=== PATIENT | female | born 1975 | race Caucasian/White ===

== ENCOUNTER 2016-12-30 18:16 | Emergency (ER) | payer OTHER ==
[2016-12-30 21:56] LABS: HEMOGLOBIN 14.8 gm/dl (12.3-15.3); RED BLOOD COUNT 5.22 M/UL (4.00-5.10); WHITE BLOOD COUNT 10.8 K/UL (4.5-11.0)
[2016-12-30 22:15] LABS: BUN/CREATININE RATIO 24 (0-10)
== END 2016-12-31 01:10 | disposition home or self-care (01) ==
LOC: ER1 18:16
PROVIDERS: Emergency Medicine
DX: R10.11 Right upper quadrant pain (principal); R10.12 Left upper quadrant pain; R11.2 Nausea with vomiting, unspecified; R19.7 Diarrhea, unspecified; R63.0 Anorexia; Z90.49 Acquired absence of other specified parts of digestive tract
CPT/HCPCS: 36415; 36600; 80053; 81001; 82009; 82800; 83690; 84703; 85025; 96361; 96374; 99284; J2405

== ENCOUNTER 2020-11-01 18:12 | Emergency (ER) | payer OTHER ==
[~2020-11-01 18:12] MED LIST: FLEXERIL 10 MG10 MG PO; IBUPROFEN800 MG PO
[2020-11-01 19:32] LABS: BUN/CREATININE RATIO 19 (0-10)
[2020-11-01 21:29] LABS: HEMOGLOBIN 14.4 gm/dl (12.3-15.3); RED BLOOD COUNT 5.1 M/UL (4.00-5.10); WHITE BLOOD COUNT 12.6 K/UL (4.5-11.0)
[2020-11-01] MEDS ORDERED: TRAMADOL HCL50 MG PO (22:01)
[2020-11-01] MEDS ORDERED: IBUPROFEN600 MG PO (22:01)
== END 2020-11-01 22:15 | disposition home or self-care (01) ==
LOC: ER1 18:12
PROVIDERS: Internal Medicine
DX: R10.9 Unspecified abdominal pain (principal); E87.6 Hypokalemia; F17.210 Nicotine dependence, cigarettes, uncomplicated; E11.43 Type 2 diabetes mellitus with diabetic autonomic (poly)neuropathy; K31.84 Gastroparesis; R31.9 Hematuria, unspecified
CPT/HCPCS: 80053; 81001; 84703; 85025; 85610; 85730; 96374; 96375; 99284; J1885; J2405; J7120

== ENCOUNTER 2021-05-04 11:52 | Inpatient (IN) | payer OTHER ==
[~2021-05-04] VITALS: Ht 172.7 cm; Wt 107.5 kg
[~2021-05-04 11:52] MED LIST changes: +IBUPROFEN600 MG PO; +TRAMADOL HCL50 MG PO
[2021-05-04 12:10] LABS: HEMOGLOBIN 15.3 gm/dl (12.3-15.3); RED BLOOD COUNT 5.32 M/UL (4.00-5.10); WHITE BLOOD COUNT 13.2 K/UL (4.5-11.0)
[2021-05-04 12:31] LABS: BUN/CREATININE RATIO 14 (0-10)
[2021-05-04] MEDS ORDERED: ATORVASTATIN CA40 MG PO (23:00)
[2021-05-04] MEDS ORDERED: EFFEXOR XR 75 M75 MG PO (23:01)
[2021-05-04] MEDS ORDERED: HYDROCHLOROTHIA25 MG PO (23:04)
[2021-05-04] MEDS ORDERED: METOPROLOL SUCC25 MG PO (23:05)
[2021-05-04] MEDS ORDERED: LOSARTAN POTAS100 MG PO (23:05)
[2021-05-04] MEDS ORDERED: VENLAFAXINE HC150 MG PO (23:07)
[2021-05-04] MEDS ORDERED: METFORMIN HCL1000 MG PO (23:08)
[2021-05-04] MEDS ORDERED: FENOFIBRATE160 MG PO (23:09)
[2021-05-04] MEDS ORDERED: LEVOCETIRIZINE D5 MG PO (23:10)
[2021-05-04] MEDS ORDERED: MONTELUKAST SOD10 MG PO (23:11)
[2021-05-04] MEDS ORDERED: GABAPENTIN600 MG PO (23:14)
[2021-05-04] MEDS ORDERED: INSULIN PUMP (23:27)
[2021-05-05 12:50] LABS: WHITE BLOOD COUNT 11.3 K/UL (4.5-11.0)
[2021-05-05 13:00] LABS: HEMOGLOBIN 12.9 gm/dl (12.3-15.3); RED BLOOD COUNT 4.57 M/UL (4.00-5.10)
[2021-05-05 13:16] LABS: BUN/CREATININE RATIO 13 (0-10)
--- NOTE | 2021-05-06 09:04 | NUR ---
patient uses insulin pump bs this morning 225 and corrected with insulin med
[2021-05-07 03:40] LABS: BUN/CREATININE RATIO 9 (0-10)
--- NOTE | 2021-05-07 09:55 | NUR ---
patient on insulin pump, bs this morning 245 and gave herself correction
== END 2021-05-07 19:04 | disposition home or self-care (01) | DRG 921 ==
LOC: ER1 11:52 → M/S 17:53 → CDU 17:53 → M/S 22:25
PROVIDERS: Emergency Medicine; Internal Medicine; ADMIT Internal Medicine
DX: T85.518A Breakdown (mechanical) of other gastrointestinal prosthetic devices, implants and grafts, initial encounter (principal); E11.43 Type 2 diabetes mellitus with diabetic autonomic (poly)neuropathy; Z20.822 Contact with and (suspected) exposure to COVID-19; I10 Essential (primary) hypertension; E78.5 Hyperlipidemia, unspecified; E11.9 Type 2 diabetes mellitus without complications; Y83.9 Surgical procedure, unspecified as the cause of abnormal reaction of the patient, or of later complication, without mention of misadventure at the time of the procedure; Z96.41 Presence of insulin pump (external) (internal); E86.0 Dehydration; E66.01 Morbid (severe) obesity due to excess calories; G89.29 Other chronic pain; M51.36 Other intervertebral disc degeneration, lumbar region; E11.40 Type 2 diabetes mellitus with diabetic neuropathy, unspecified; F17.210 Nicotine dependence, cigarettes, uncomplicated; K31.84 Gastroparesis; K75.81 Nonalcoholic steatohepatitis (NASH); Z79.4 Long term (current) use of insulin; Z90.49 Acquired absence of other specified parts of digestive tract; Z98.1 Arthrodesis status; Z83.3 Family history of diabetes mellitus; Z82.49 Family history of ischemic heart disease and other diseases of the circulatory system; Z88.0 Allergy status to penicillin; Z88.2 Allergy status to sulfonamides; E27.8 Other specified disorders of adrenal gland
CPT/HCPCS: 36415; 80048; 80053; 81001; 82962; 83036; 83690; 84703; 85025; 96374; 96375; 99285; C9113; J0360; J1170; J1200; J2270; J2405; J2765; J7030; Q9967

== ENCOUNTER → 2021-05-16 | Outpatient (CLI) | payer OTHER ==
[~2021-05-16] MED LIST changes: +ATORVASTATIN CA40 MG PO; +EFFEXOR XR 75 M75 MG PO; +FENOFIBRATE160 MG PO; +GABAPENTIN600 MG PO; +HYDROCHLOROTHIA25 MG PO; +INSULIN PUMP; +LEVOCETIRIZINE D5 MG PO; +LOSARTAN POTAS100 MG PO; +METFORMIN HCL1000 MG PO; +METOPROLOL SUCC25 MG PO; +MONTELUKAST SOD10 MG PO; +VENLAFAXINE HC150 MG PO
== END ==
LOC: OPSV 12:00
DX: E86.0 Dehydration (principal); K31.84 Gastroparesis
CPT/HCPCS: 96360; 96361; 96375; J2405; J7030

== ENCOUNTER → 2021-05-19 | Outpatient (CLI) | payer OTHER ==
[~2021-05-19] VITALS: Ht 172.7 cm; Wt 108.0 kg
== END ==
LOC: OPSV 08:33
DX: E86.0 Dehydration (principal); K31.84 Gastroparesis
CPT/HCPCS: 96360; 96361; 96375; J2405; J7030

== ENCOUNTER → 2021-05-30 | Outpatient (CLI) | payer OTHER ==
[~2021-05-30] VITALS: Ht 172.7 cm; Wt 108.0 kg
== END ==
LOC: OPSV 08:48
DX: E86.0 Dehydration (principal); K31.84 Gastroparesis
CPT/HCPCS: 96360; 96361; 96375; J2405

== ENCOUNTER 2021-06-04 17:29 | Emergency (ER) | payer OTHER ==
[2021-06-04 19:42] LABS: HEMOGLOBIN 14.5 gm/dl (12.3-15.3); RED BLOOD COUNT 5.07 M/UL (4.00-5.10); WHITE BLOOD COUNT 17.1 K/UL (4.5-11.0)
[2021-06-04 20:11] LABS: BUN/CREATININE RATIO 20 (0-10)
[2021-06-04] MEDS ORDERED: BENTYL 20MG TAB20 MG PO (21:49)
== END 2021-06-04 22:09 | disposition home or self-care (01) ==
LOC: ER1 17:29
PROVIDERS: Physician Assistant
DX: R10.84 Generalized abdominal pain (principal); R11.2 Nausea with vomiting, unspecified; E11.43 Type 2 diabetes mellitus with diabetic autonomic (poly)neuropathy; K31.84 Gastroparesis
CPT/HCPCS: 80053; 81001; 82009; 82800; 83690; 83735; 84703; 85025; 87077; 87086; 87186; 96374; 96375; 99284; J2270; J2405; Q9967

== ENCOUNTER → 2021-06-09 | Outpatient (CLI) | payer OTHER ==
[~2021-06-09] VITALS: Ht 172.7 cm; Wt 108.0 kg
[~2021-06-09] MED LIST changes: +BENTYL 20MG TAB20 MG PO
== END ==
LOC: OPSV 09:00
DX: E86.0 Dehydration (principal); K31.84 Gastroparesis
CPT/HCPCS: 96360; 96375; J2405; J7030

== ENCOUNTER → 2021-06-13 | Outpatient (CLI) | payer OTHER ==
[~2021-06-13] VITALS: Ht 172.7 cm; Wt 108.0 kg
== END ==
LOC: OPSV 08:59
DX: E86.0 Dehydration (principal); K31.84 Gastroparesis
CPT/HCPCS: 96360; 96375; J2405

== ENCOUNTER → 2021-06-16 | Outpatient (CLI) | payer OTHER ==
[~2021-06-16] VITALS: Ht 172.7 cm; Wt 108.0 kg
[~2021-06-16] MED LIST changes: +COMPAZINE 10MG10 MG PO; +MACROBID 100 M100 MG PO; +ONDANSETRON ODT8 MG PO; +PROMETHAZINE12.5 M1 PO; +PROTONIX 40 MG40 M1 PO
== END ==
LOC: OPSV 09:00
DX: E86.0 Dehydration (principal); K31.84 Gastroparesis
CPT/HCPCS: 96360; 96361; 96375; J2405

== ENCOUNTER → 2021-06-17 | Day surgery (SDC) | payer OTHER ==
[~2021-06-17] VITALS: Ht 172.7 cm; Wt 104.3 kg
== END | disposition home or self-care (01) ==
LOC: OR 08:11
DX: E11.43 Type 2 diabetes mellitus with diabetic autonomic (poly)neuropathy (principal); I10 Essential (primary) hypertension; E78.00 Pure hypercholesterolemia, unspecified; K21.9 Gastro-esophageal reflux disease without esophagitis; F41.9 Anxiety disorder, unspecified; F32.A Depression, unspecified; G47.33 Obstructive sleep apnea (adult) (pediatric); Z87.891 Personal history of nicotine dependence; Z88.0 Allergy status to penicillin; Z88.6 Allergy status to analgesic agent; Z88.8 Allergy status to other drugs, medicaments and biological substances; Z79.4 Long term (current) use of insulin; Z20.822 Contact with and (suspected) exposure to COVID-19
CPT/HCPCS: 77001; 82962; 84703; C1769; C1788; J1642; J2001; J2250; J2704; J3010; J3370; J7030; J7040; J7050; J7120

== ENCOUNTER → 2021-06-20 | Outpatient (CLI) | payer OTHER ==
[~2021-06-20] VITALS: Ht 172.7 cm; Wt 108.0 kg
== END ==
LOC: OPSV 09:00
DX: E86.0 Dehydration (principal); K31.84 Gastroparesis; Z45.2 Encounter for adjustment and management of vascular access device
CPT/HCPCS: 96360; 96361; J1642; J2405

== ENCOUNTER → 2021-06-23 | Outpatient (CLI) | payer OTHER ==
[~2021-06-23] VITALS: Ht 172.7 cm; Wt 108.0 kg
== END ==
LOC: OPSV 09:00
DX: E86.0 Dehydration (principal); K31.84 Gastroparesis
CPT/HCPCS: 96360; 96375; J1642; J2405; J7030

== ENCOUNTER → 2021-06-27 | Outpatient (CLI) | payer OTHER ==
[~2021-06-27] VITALS: Ht 172.7 cm; Wt 108.0 kg
== END ==
LOC: OPSV 08:21
DX: E86.0 Dehydration (principal); K31.84 Gastroparesis
CPT/HCPCS: 96360; 96375; J1642; J2405; J7030

== ENCOUNTER → 2021-06-30 | Outpatient (CLI) | payer OTHER ==
[~2021-06-30] VITALS: Ht 172.7 cm; Wt 108.0 kg
== END ==
LOC: OPSV 08:49
DX: E86.0 Dehydration (principal); K31.84 Gastroparesis
CPT/HCPCS: 96360; 96361; 96375; J1642; J2405

== ENCOUNTER 2021-07-04 18:06 | Emergency (ER) | payer OTHER ==
[2021-07-04 19:48] LABS: HEMOGLOBIN 14.5 gm/dl (12.3-15.3); RED BLOOD COUNT 5.19 M/UL (4.00-5.10); WHITE BLOOD COUNT 14.9 K/UL (4.5-11.0)
[2021-07-04 20:17] LABS: BUN/CREATININE RATIO 15 (0-10)
[2021-07-04] MEDS ORDERED: BENTYL 20MG TAB20 MG PO (21:49)
[2021-07-04] MEDS ORDERED: ZOFRAN ODT 4 MG4 MG PO (21:49)
[2021-07-04] MEDS ORDERED: OMNICEF 300 MG300 MG PO (21:52)
== END 2021-07-04 22:20 | disposition home or self-care (01) ==
LOC: ER1 18:06
PROVIDERS: Physician Assistant
DX: N39.0 Urinary tract infection, site not specified (principal); E11.9 Type 2 diabetes mellitus without complications; I10 Essential (primary) hypertension; Z79.4 Long term (current) use of insulin; Z88.0 Allergy status to penicillin; Z88.2 Allergy status to sulfonamides; Z90.49 Acquired absence of other specified parts of digestive tract; R19.7 Diarrhea, unspecified; R11.2 Nausea with vomiting, unspecified; Z20.822 Contact with and (suspected) exposure to COVID-19
CPT/HCPCS: 80053; 81001; 83605; 83690; 83735; 85025; 86140; 87086; 96374; 96375; 99284; J1642; J2405; J7030; Q9967; U0002; U0003

== ENCOUNTER → 2021-07-07 | Outpatient (CLI) | payer OTHER ==
[~2021-07-07] VITALS: Ht 172.7 cm; Wt 108.0 kg
[~2021-07-07] MED LIST changes: +OMNICEF 300 MG300 MG PO; +ZOFRAN ODT 4 MG4 MG PO
== END ==
LOC: OPSV 09:00
DX: E86.0 Dehydration (principal); K31.84 Gastroparesis
CPT/HCPCS: 96365; 96375; J1642; J2405; J7030

== ENCOUNTER → 2021-07-09 | Outpatient (CLI) | payer OTHER ==
[~2021-07-09] VITALS: Ht 172.7 cm; Wt 108.0 kg
== END ==
LOC: OPSV 09:38
DX: K31.84 Gastroparesis (principal); Z45.2 Encounter for adjustment and management of vascular access device; Z20.822 Contact with and (suspected) exposure to COVID-19
CPT/HCPCS: 96360; 96375; J1642; J2405

== ENCOUNTER → 2021-07-14 | Outpatient (CLI) | payer OTHER ==
[~2021-07-14] VITALS: Ht 172.7 cm; Wt 108.0 kg
== END ==
LOC: OPSV 08:43
DX: E86.0 Dehydration (principal); K31.84 Gastroparesis; Z45.2 Encounter for adjustment and management of vascular access device
CPT/HCPCS: 96360; 96361; 96375; J1642; J2405

== ENCOUNTER → 2021-07-17 | Outpatient (CLI) | payer OTHER ==
[~2021-07-17] VITALS: Ht 172.7 cm; Wt 108.0 kg
== END ==
LOC: OPSV 06:40
DX: E86.0 Dehydration (principal); K31.84 Gastroparesis
CPT/HCPCS: 96360; 96375; J1642; J2405; J7030

== ENCOUNTER → 2021-07-21 | Outpatient (CLI) | payer OTHER | LOC: OPSV 08:48 | DX: E86.0 Dehydration (principal); K31.84 Gastroparesis | CPT/HCPCS: 96360; 96361; 96375; J1642; J2405; J7030 ==

== ENCOUNTER → 2021-07-25 | Outpatient (CLI) | payer OTHER ==
[~2021-07-25] VITALS: Ht 172.7 cm; Wt 108.0 kg
== END ==
LOC: OPSV 09:00
DX: E86.0 Dehydration (principal); K31.84 Gastroparesis; Z45.2 Encounter for adjustment and management of vascular access device
CPT/HCPCS: 96360; 96361; 96375; J1642; J2405

== ENCOUNTER 2021-07-30 07:30 | Emergency (ER) | payer OTHER ==
[2021-07-30 08:19] LABS: RED BLOOD COUNT 5.44 M/UL (4.00-5.10); WHITE BLOOD COUNT 14.4 K/UL (4.5-11.0)
[2021-07-30 08:45] LABS: BUN/CREATININE RATIO 21 (0-10)
== END 2021-07-30 12:42 | disposition home or self-care (01) ==
LOC: ER1 07:30
PROVIDERS: Physician Assistant
DX: R10.12 Left upper quadrant pain (principal); R11.2 Nausea with vomiting, unspecified; E11.9 Type 2 diabetes mellitus without complications; I10 Essential (primary) hypertension; F17.200 Nicotine dependence, unspecified, uncomplicated; Z90.49 Acquired absence of other specified parts of digestive tract
CPT/HCPCS: 74019; 80053; 81001; 83690; 84703; 85025; 96374; 96375; 96376; 99284; J1200; J1885; J2270; J2405; J2765

== ENCOUNTER → 2021-08-01 | Outpatient (CLI) | payer OTHER ==
[~2021-08-01] VITALS: Ht 172.7 cm; Wt 108.0 kg
== END ==
LOC: OPSV 08:47
DX: K31.84 Gastroparesis (principal); E86.0 Dehydration
CPT/HCPCS: 96360; 96375; J1642; J2405

== ENCOUNTER → 2021-08-04 | Outpatient (CLI) | payer OTHER ==
[~2021-08-04] VITALS: Ht 172.7 cm; Wt 108.0 kg
== END ==
LOC: OPSV 08:47
DX: E86.0 Dehydration (principal); K31.84 Gastroparesis
CPT/HCPCS: 96360; 96361; 96375; J1642; J2405; J7030

== ENCOUNTER → 2021-08-08 | Outpatient (CLI) | payer OTHER ==
[~2021-08-08] VITALS: Ht 172.7 cm; Wt 108.0 kg
== END ==
LOC: OPSV 08:34
DX: E86.0 Dehydration (principal); K31.84 Gastroparesis; Z45.2 Encounter for adjustment and management of vascular access device
CPT/HCPCS: 96360; 96375; J1642; J2405

== ENCOUNTER → 2021-08-11 | Outpatient (CLI) | payer OTHER ==
[~2021-08-11] VITALS: Ht 172.7 cm; Wt 108.0 kg
== END ==
LOC: OPSV 08:35
DX: E86.0 Dehydration (principal); K31.84 Gastroparesis
CPT/HCPCS: 96360; 96361; 96375; J1642; J2405; J7030

== ENCOUNTER → 2021-08-13 | Outpatient (CLI) | payer OTHER ==
[~2021-08-13] VITALS: Ht 172.7 cm; Wt 108.0 kg
== END ==
LOC: OPSV 07:40
DX: E86.0 Dehydration (principal); K31.84 Gastroparesis
CPT/HCPCS: 96360; 96361; 96375; J1642; J2405

== ENCOUNTER → 2021-08-14 | Outpatient (CLI) | payer OTHER ==
[~2021-08-14] VITALS: Ht 172.7 cm; Wt 108.0 kg
== END ==
LOC: OPSV 10:00
DX: E86.0 Dehydration (principal); K31.84 Gastroparesis
CPT/HCPCS: 96360; 96375; J1642; J2405

== ENCOUNTER → 2021-08-18 | Outpatient (CLI) | payer OTHER | LOC: OPSV 08:47 | DX: E86.0 Dehydration (principal); K31.84 Gastroparesis | CPT/HCPCS: 96360; 96375; J1642; J2405 ==

== ENCOUNTER → 2021-08-22 | Outpatient (CLI) | payer OTHER ==
[~2021-08-22] VITALS: Ht 172.7 cm; Wt 108.0 kg
== END ==
LOC: OPSV 09:00
DX: E86.0 Dehydration (principal); K31.84 Gastroparesis
CPT/HCPCS: 96360; 96361; 96375; J1642; J2405; J7030

== ENCOUNTER → 2021-08-25 | Outpatient (CLI) | payer OTHER ==
[~2021-08-25] VITALS: Ht 172.7 cm; Wt 108.0 kg
== END ==
LOC: OPSV 09:00
DX: E86.0 Dehydration (principal); K31.84 Gastroparesis
CPT/HCPCS: 96360; 96361; 96375; J1642; J2405; J7030

== ENCOUNTER → 2021-09-01 | Outpatient (CLI) | payer OTHER ==
[~2021-09-01] VITALS: Ht 172.7 cm; Wt 108.0 kg
== END ==
LOC: OPSV 09:00
DX: E86.0 Dehydration (principal); K31.84 Gastroparesis
CPT/HCPCS: 96360; 96375; J1642; J2405

== ENCOUNTER → 2021-09-05 | Outpatient (CLI) | payer OTHER ==
[~2021-09-05] VITALS: Ht 172.7 cm; Wt 108.0 kg
== END ==
LOC: OPSV 08:27
DX: E86.0 Dehydration (principal); K31.84 Gastroparesis
CPT/HCPCS: 96360; 96375; J1642; J2405; J7030

== ENCOUNTER → 2021-09-08 | Outpatient (CLI) | payer OTHER ==
[~2021-09-08] VITALS: Ht 172.7 cm; Wt 108.0 kg
== END ==
LOC: OPSV 09:00
DX: E86.0 Dehydration (principal); K31.84 Gastroparesis
CPT/HCPCS: 96365; 96375; J1642; J2405; J7030

== ENCOUNTER → 2021-09-08 | Outpatient (CLI) | payer OTHER | LOC: KOH-I 13:50 | DX: M79.601 Pain in right arm (principal) | CPT/HCPCS: 73060; 73080 ==

== ENCOUNTER → 2021-09-12 | Outpatient (CLI) | payer OTHER ==
[~2021-09-12] VITALS: Ht 172.7 cm; Wt 108.0 kg
== END ==
LOC: OPSV 08:29
DX: E86.0 Dehydration (principal); K31.84 Gastroparesis
CPT/HCPCS: 96360; 96361; 96375; J1642; J2405; J7030

== ENCOUNTER → 2021-09-15 | Outpatient (CLI) | payer OTHER ==
[~2021-09-15] VITALS: Ht 172.7 cm; Wt 108.0 kg
== END ==
LOC: OPSV 08:41
DX: E86.0 Dehydration (principal); K31.84 Gastroparesis
CPT/HCPCS: 96360; 96375; J1642; J2405

== ENCOUNTER → 2021-09-19 | Outpatient (CLI) | payer OTHER ==
[~2021-09-19] VITALS: Ht 172.7 cm; Wt 108.0 kg
== END ==
LOC: OPSV 09:00
DX: E86.0 Dehydration (principal); K31.84 Gastroparesis
CPT/HCPCS: 96360; 96361; 96375; J1642; J2405; J7030

== ENCOUNTER 2021-10-01 19:31 | Emergency (ER) | payer OTHER ==
[2021-10-01 21:21] LABS: HEMOGLOBIN 13.9 gm/dl (12.3-15.3); RED BLOOD COUNT 4.93 M/UL (4.00-5.10); WHITE BLOOD COUNT 13.2 K/UL (4.5-11.0)
[2021-10-01 21:51] LABS: BUN/CREATININE RATIO 9 (0-10)
== END 2021-10-02 02:15 | disposition home or self-care (01) ==
LOC: ER1 19:31
PROVIDERS: Physician Assistant
DX: R07.89 Other chest pain (principal); R51.9 Headache, unspecified; F17.210 Nicotine dependence, cigarettes, uncomplicated; Z88.0 Allergy status to penicillin; Z88.2 Allergy status to sulfonamides; I11.9 Hypertensive heart disease without heart failure; Z20.822 Contact with and (suspected) exposure to COVID-19; E11.9 Type 2 diabetes mellitus without complications; E78.5 Hyperlipidemia, unspecified; Z79.4 Long term (current) use of insulin
CPT/HCPCS: 0240U; 70450; 71045; 80053; 81001; 82550; 82553; 83605; 83690; 83880; 84484; 84703; 85025; 85379; 85610; 85730; 93005; 96374; 96375; 99285; J1100; J1200; J2765; Q9967

== ENCOUNTER 2022-01-01 17:06 | Emergency (ER) | payer OTHER ==
[2022-01-01 18:19] LABS: HEMOGLOBIN 13.7 gm/dl (12.3-15.3); RED BLOOD COUNT 4.9 M/UL (4.00-5.10); WHITE BLOOD COUNT 17.8 K/UL (4.5-11.0)
[2022-01-01 19:53] LABS: BUN/CREATININE RATIO 10 (0-10)
[2022-01-01] MEDS ORDERED: CLINDAMYCIN HC300 MG PO (21:50)
== END 2022-01-01 21:46 | disposition home or self-care (01) ==
LOC: ER1 17:06
PROVIDERS: Preventive Medicine Occupational Medicine
DX: T81.41XA Infection following a procedure, superficial incisional surgical site, initial encounter (principal); I10 Essential (primary) hypertension; E11.9 Type 2 diabetes mellitus without complications; Z20.822 Contact with and (suspected) exposure to COVID-19
CPT/HCPCS: 0240U; 71045; 80053; 81001; 83690; 85025; 85652; 86140; 87086; 99284; J2405; Q9967

== ENCOUNTER 2022-01-23 08:59 | Emergency (ER) | payer OTHER ==
[~2022-01-23 08:59] MED LIST changes: +CLINDAMYCIN HC300 MG PO
[2022-01-23 10:10] LABS: HEMOGLOBIN 13.6 gm/dl (12.3-15.3); RED BLOOD COUNT 4.77 M/UL (4.00-5.10); WHITE BLOOD COUNT 9.4 K/UL (4.5-11.0)
[2022-01-23 10:28] LABS: BUN/CREATININE RATIO 17 (0-10)
[2022-01-23] MEDS ORDERED: VIBRAMYCIN50 MG/5 ML PO (14:25)
[2022-01-23] MEDS ORDERED: DIFLUCAN150 MG PO (14:32)
[2022-01-23] MEDS ORDERED: CEPHALEXIN500 MG PO (14:32)
[2022-01-23] MEDS ORDERED: VIBRAMYCIN100 MG PO (14:41)
== END 2022-01-23 16:05 | disposition home or self-care (01) ==
LOC: ER1 08:59
PROVIDERS: Emergency Medicine
DX: T85.79XA Infection and inflammatory reaction due to other internal prosthetic devices, implants and grafts, initial encounter (principal); L02.211 Cutaneous abscess of abdominal wall; E11.43 Type 2 diabetes mellitus with diabetic autonomic (poly)neuropathy; K31.84 Gastroparesis; F17.210 Nicotine dependence, cigarettes, uncomplicated; Z88.0 Allergy status to penicillin; Z88.2 Allergy status to sulfonamides; Y83.8 Other surgical procedures as the cause of abnormal reaction of the patient, or of later complication, without mention of misadventure at the time of the procedure
CPT/HCPCS: 80053; 83605; 83690; 84703; 85025; 87040; 96374; 96375; 99283; J0696; J3370; J7070; Q9967

== ENCOUNTER → 2022-02-27 | Outpatient (CLI) | payer OTHER ==
[~2022-02-27] MED LIST changes: +CEPHALEXIN500 MG PO; +DIFLUCAN150 MG PO; +VIBRAMYCIN100 MG PO; +VIBRAMYCIN50 MG/5 ML PO
[2022-02-27 13:49] LABS: BUN/CREATININE RATIO 22 (0-10)
== END ==
LOC: LAB 12:06
PROVIDERS: Family Medicine
DX: R78.81 Bacteremia (principal)
CPT/HCPCS: 36415; 80053; 85652; 86140; 87040